=== PATIENT | male | born 1935 | race Caucasian/White ===

== ENCOUNTER 2019-02-01 12:54 | Emergency (ER) | payer MEDICARE ==
[2019-02-01 13:28] LABS: #Basophils 0.1 thou/uL (0.0-0.2); #Lymphocytes 2.3 thou/uL (1.20-3.40); #Monocytes 0.8 thou/uL (0.11-0.59); #Neutrophils 8.5 thou/uL (1.40-6.50); %Basophils 0.6 % (0.0-1.0); %Lymphocytes 19.6 % (21.0-51.0); %Monocytes 6.7 % (0.0-10.0); %Neutrophils 73.1 % (42.0-75.0); Hemoglobin 13.1 g/dL (14.0-18.0); Mean Corpuscular HGB CONC 30.7 g/dL (32.0-36.0); Mean Corpuscular Volume 97.6 fL (78.0-98.0); Mean Platelet Volume 6.9 fL (7.4-10.4); Platelet Count 280 thou/uL (130-400); RBC Distribution Width 12.8 % (11.5-14.5); Red Blood Cell (RBC) Count 4.38 mill/uL (4.70-6.10); White Blood Cell (WBC) Count 11.6 thou/uL (4.8-10.8)
[2019-02-01 13:42] LABS: ALT (SGPT) 24 U/L (8-55); AST (SGOT) 34 U/L (5-34); Albumin 3.5 g/dL (3.4-4.8); Alkaline Phosphatase 155 U/L (40-110); Anion Gap 15 mmol/L (10-20); BUN (Urea Nitrogen) 35 mg/dL (8.4-25.7); Bilirubin, Total 0.5 mg/dL (0.2-1.2); Calc. Creatinine Clearance 0 mL/min (70-130); Calcium 11.8 mg/dL (7.8-10.44); Carbon Dioxide 26 mmol/L (23-31); Chloride 104 mmol/L (98-107); Estimated GFR-MDRD 38; Globulin 3.8 g/dL (2.4-3.5); Glucose 123 mg/dL (83-110); Lipase 30 U/L (8-78); Potassium 4.2 mmol/L (3.5-5.1); Protein, Total 7.3 g/dL (5.8-8.1); Sodium 141 mmol/L (136-145)
--- NOTE | 2019-02-01 14:09 | RAD ---
XR Chest 1 View Portable HISTORY: Chest pain, worse in coughing COMPARISON: None FINDINGS: The heart size normal. There is patchy infiltrate in the left upper lobe. No pneumothoraces or pleural effusions are seen. IMPRESSION: Findings are suspicious for left upper lobe pneumonia.
== END 2019-02-01 14:25 | disposition home or self-care (01) ==
LOC: BURERS 12:54
DX: J18.9 Pneumonia, unspecified organism (principal); Z87.891 Personal history of nicotine dependence
CPT/HCPCS: 36415; 71045; 80053; 83690; 84484; 85025; 93005

== ENCOUNTER 2019-02-07 08:09 | Emergency (ER) | payer MEDICARE ==
[2019-02-07 09:02] LABS: ALT (SGPT) 23 U/L (8-55); AST (SGOT) 32 U/L (5-34); Albumin 3.4 g/dL (3.4-4.8); Alkaline Phosphatase 157 U/L (40-110); Anion Gap 16 mmol/L (10-20); BUN (Urea Nitrogen) 35 mg/dL (8.4-25.7); Bilirubin, Total 0.7 mg/dL (0.2-1.2); Calc. Creatinine Clearance 0 mL/min (70-130); Carbon Dioxide 25 mmol/L (23-31); Chloride 103 mmol/L (98-107); Estimated GFR-MDRD 40; Globulin 3.8 g/dL (2.4-3.5); Glucose 102 mg/dL (83-110); Potassium 5.1 mmol/L (3.5-5.1); Protein, Total 7.2 g/dL (5.8-8.1); Sodium 139 mmol/L (136-145)
[2019-02-07 09:04] LABS: #Basophils 0.1 thou/uL (0.0-0.2); #Lymphocytes 2.1 thou/uL (1.20-3.40); #Monocytes 1.1 thou/uL (0.11-0.59); %Basophils 0.8 % (0.0-1.0); %Lymphocytes 14.9 % (21.0-51.0); %Monocytes 7.5 % (0.0-10.0); %Neutrophils 76.8 % (42.0-75.0); Hemoglobin 13.4 g/dL (14.0-18.0); Mean Corpuscular HGB CONC 31.3 g/dL (32.0-36.0); Mean Corpuscular Hemoglobin 30.3 pg (27.0-31.0); Mean Corpuscular Volume 96.7 fL (78.0-98.0); Mean Platelet Volume 6.8 fL (7.4-10.4); Platelet Count 305 thou/uL (130-400); RBC Distribution Width 12.9 % (11.5-14.5); Red Blood Cell (RBC) Count 4.43 mill/uL (4.70-6.10); White Blood Cell (WBC) Count 14.3 thou/uL (4.8-10.8)
[2019-02-07] MEDS ORDERED: Fentanyl 100 MCG/2 ML VIAL ONE (09:11)
[2019-02-07] MEDS ORDERED: cefTRIAXone\\ROCEPHIN 2 GM VIAL ONE (09:11)
[2019-02-07] MEDS ORDERED: Aspirin Chewable 81 MG TAB ONE (09:11)
[2019-02-07] MEDS ORDERED: Enoxaparin Sodium 100 MG/ML SYRINGE ONE (09:11)
[2019-02-07] MEDS ORDERED: Sodium Chloride 0.9% 100 ML ONE (09:12)
[2019-02-07 09:16] LABS: Calcium 13.2 mg/dL (7.8-10.44)
--- NOTE | 2019-02-07 09:27 | RAD ---
PORTABLE CHEST: Date: 02/07/19 Comparison made with the 02/01/19 study. This portable film at 0836 hours again shows infiltrative changes in the left upper lobe. They really have not improved since 02/01/19. This is somewhat concerning. The right lung remains clear. There a re no effusions. The heart size is stable. IMPRESSION: Persistent infiltrative changes in the left upper lobe. The differential includes pneumonia not respo nding to current antibiotics, underlying pathology to explain persisting pneumonia such as neoplasia, or in unusual cases, neoplasia itself. I would recommend changing antibiotics, and if that does not cause the findings to improve, then consider doing a CT of the thorax. CODE T. POS: HOME
== END 2019-02-07 09:52 | disposition short-term general hospital (02) ==
LOC: BURERS 08:09
DX: J18.1 Lobar pneumonia, unspecified organism (principal); I48.91 Unspecified atrial fibrillation; E83.52 Hypercalcemia; F41.9 Anxiety disorder, unspecified; F32.9 Major depressive disorder, single episode, unspecified; Z87.891 Personal history of nicotine dependence; Z79.899 Other long term (current) drug therapy; Z79.891 Long term (current) use of opiate analgesic
CPT/HCPCS: 36415; 71045; 80053; 82553; 83605; 83880; 84484; 85025; 87040; 87804; 93005; 96372; 96374; 96375; J0696; J1650; J3010; J3490